=== PATIENT | male | born 1985 ===

== ENCOUNTER → 2024-01-11 08:45 | Outpatient (REF) | payer BC, SELFPAY | LOC: HWRAD 08:45 | PROVIDERS: ATTENDING PHYSICIAN Orthopaedic Surgery | DX: S69.91XA Unspecified injury of right wrist, hand and finger(s), initial encounter (principal) | CPT/HCPCS: 73130 ==

== ENCOUNTER → 2024-02-25 10:36 | Outpatient (REF) | payer BC, SELFPAY ==
[2024-02-25 11:37] LABS: % Basophils 0.8 % (0-2); % Immature Granulocytes 0.3 % (0-0.5); % Lymphocytes 32.6 % (20.5-51.1); % Neutrophils 57.3 % (42.2-75.2); Absolute Basophils 0.1 10^3/uL (0-0.2); Absolute Eosinophils 0.2 10^3/uL (0-0.7); Absolute Lymphocytes 2.6 10^3/uL (1.2-3.4); Absolute Monocytes 0.6 10^3/uL (0.1-0.6); Absolute Neutrophils 4.5 10^3/uL (1.4-6.5); Hematocrit 42.1 % (39.0-52.0); Hemoglobin 14.4 g/dL (13.0-18.0); Mean Corp Hgb Conc. 34.2 g/dL (33.0-37.0); Mean Corpuscular Hgb 29.6 pg (27.0-31.0); Mean Corpuscular Volume 86.4 fL (80.0-94.0); Mean Platelet Volume 9.5 fL (7.4-10.4); Nucleated Red Blood Cells % 0 % (-); Platelet Count 320 10^3/uL (130-400); Red Blood Cell Count 4.87 10^6/uL (4.70-6.10); Red Cell Dist. Width 13.4 % (11.5-14.5); White Blood Cell Count 7.8 10^3/uL (4.8-10.8)
[2024-02-25 11:46] LABS: ALT (SGPT) 33 U/L (0-50); AST (SGOT) 32 U/L (17-59); Albumin 4.9 g/dl (3.5-5.0); Alkaline Phosphatase 89 U/L (38-126); Blood Urea Nitrogen 12 mg/dl (9-20); Calcium 9.8 mg/dl (8.4-10.2); Carbon Dioxide 29 mmol/L (22-30); Chloride 102 mmol/L (98-107); Glucose 94 mg/dl (70-99); HDL Cholesterol 42 mg/dl; LDL Cholesterol, Calculated 120 mg/dl; Potassium 4.7 mmol/L (3.5-5.1); Sodium 139 mmol/L (135-145); Total Bilirubin 0.8 mg/dl (0.2-1.3); Total Cholesterol 206 mg/dl (50-199); Total Protein 8.3 g/dl (6.3-8.2); Triglyceride 224 mg/dl (10-149); Very Low Density Lipoprotein 44 mg/dl (0-30); eGFR > 60.00
[2024-02-25 12:17] LABS: TSH Reflex To Free T4 1.44 uIU/ml (0.47-4.68)
== END ==
LOC: REG 10:36
PROVIDERS: ATTENDING PHYSICIAN Physician Assistant
DX: Z00.00 Encounter for general adult medical examination without abnormal findings (principal); L72.9 Follicular cyst of the skin and subcutaneous tissue, unspecified; Z13.29 Encounter for screening for other suspected endocrine disorder; Z13.0 Encounter for screening for diseases of the blood and blood-forming organs and certain disorders involving the immune mechanism; Z13.1 Encounter for screening for diabetes mellitus
CPT/HCPCS: 36415; 80053; 80061; 84443; 85025

== ENCOUNTER 2025-04-07 19:19 | Emergency (ER) | payer BC, SELFPAY ==
[2025-04-07 19:24] VITALS: BP 135/88
--- NOTE | 2025-04-07 20:11 | ED.GENMED ---
History of Present Illness
General
Chief Complaint: Skin Problem
Source: patient
Exam Limitations: none
Time Seen by Provider: 04/07/25 19:49
History of Present Illness
History of Present Illness:
See MDM
Past History
Past History
ED Past Medical History: None
ED Past Surgical History: None
Social History
Tobacco: Non-smoker
Alcohol: None
Phy Exam
Physical Exam
Physical Exam:
See MDM
Course
Orders/Labs/Results
Orders:
Orders
04/07/25 20:09
Cephalexin Monohydrate [Keflex] 500 mg PO NOW STA
Sulfamethox./Trimethoprim Ds [Bactrim Ds 800 mg/160 mg] 1 tablet PO NOW STA
US Periph Venous LOWER Ext RT Urgent
Comment:
Reason For Exam: R leg swelling and pain
04/07/25 20:19
Complete Blood Count/With Diff Urgent
Comprehensive Metabolic Panel Urgent
Ehrlichia/Anaplasma by PCR [S] Urgent
Lyme Progressive Urgent
[facility] Spotted Fever IgG&IgM [S] Urgent
Blood Parasites Urgent
[facility]UR[facility] Source: Blood/Venous
Specimen Description:
Abnormal Lab Results
04/07/25
20:19
Glucose 101 H mg/dl
(70-99)
Total Protein 8.6 H g/dl
(6.3-8.2)
04/07/25 20:19
04/07/25 20:19
Vital Signs
Initial and Last Documented VS:
Initial Vital Signs
Temp Pulse Resp BP Pulse Ox
98.3 F 65 18 135/88 100
04/07/25 19:24 04/07/25 19:24 04/07/25 19:24 04/07/25 19:24 04/07/25 19:24
Last Documented Vital Signs
Temp Pulse Resp BP Pulse Ox
98.3 F 65 18 135/88 100
04/07/25 19:24 04/07/25 19:24 04/07/25 19:24 04/07/25 19:24 04/07/25 20:12
MDM/Problems Addressed
Differential Diagnosis Includes:
Note:
CHIEF COMPLAINT(S)
Severe spreading skin reaction following an insect bite.
HISTORY OF PRESENT ILLNESS
The patient is a 40-year-old male who presented with a severe and spreading skin reaction following an insect bite that occurred on Tuesday at approximately 10:00 PM. The patient described an initial burning sensation at the site of the bite for
about six hours, during which he applied cold water and ice packs to alleviate the burning. By the following day, the affected area had become swollen, and he noted significant tightness which restricted leg movement. On the day of the visit,
further spread of the reaction with accompanying pitting was observed. The patient denies any significant pain unless the area is stretched. The physical characteristics are consistent with cellulitis, raising concerns for infection. The timeline
and presentation are less typical for a tick bite, but Lyme disease testing will still be considered. Given the pitting edema to the right leg, will obtain ultrasound rule out DVT
ALLERGIES
The patient reports no known allergies.
MEDICATIONS
There are no current medications reported by the patient.
PHYSICAL EXAM
General: Alert, no acute distress.
Skin: Cellulitic changes to right medial thigh
Head: Normocephalic, atraumatic
Neck: Appears supple, trachea midline.
Eyes, Ears, Nose, Mouth, and Throat: Oral mucosa moist.
Cardiovascular: No signs of cyanosis
Respiratory: Respirations are non-labored.
Abdomen: Non-distended
Musculoskeletal: Pitting edema noted to right distal leg but leg is neurovascularly intact
Neurological: No focal neurological deficit observed.
Psychiatric: Cooperative, appropriate mood and affect.
PLAN
1. Blood Work: Perform blood tests to check for tick-borne illnesses, including Lyme disease.
2. Antibiotics: Initiate treatment with cephalexin and sulfamethoxazole/trimethoprim (Bactrim) to address the suspected bacterial infection and provide coverage for different types of pathogens.
3. Imaging: Consider a lower extremity ultrasound to rule out deep vein thrombosis, particularly due to unilateral swelling, although it is considered likely to be due to infection.
4. Follow-up: The patient will be contacted with results, especially if Lyme disease tests come back positive, and antibiotics may be adjusted as necessary.
DIFFERENTIAL DIAGNOSIS
The Differential Diagnosis includes, in no particular order and is not limited to:
1. Insect bite reaction
2. Cellulitis
3. Lyme disease
4. Deep vein thrombosis
5. Allergic reaction
6. Contact dermatitis
7. Erysipelas
8. Systemic infection
9. Localized abscess
10. Venous insufficiency
SUMMARY OF ENCOUNTER
The patient, a 40-year-old male, presented with a severe and spreading skin reaction following an insect bite. Initial evaluations suggested cellulitis. An ultrasound was performed to rule out deep vein thrombosis (DVT), which returned negative.
PLAN
Initiate treatment with cephalexin and sulfamethoxazole/trimethoprim to address the cellulitic infection. Antibiotics were chosen due to the aggressive nature of the infection. Tick-borne illness testing is pending, with follow-up instructions
provided.
PATIENT EDUCATION AND COUNSELING
The patient was advised on strict return precautions, including monitoring for spreading of the infection and development of fevers.
FOLLOW-UP INSTRUCTIONS
Follow-up with the primary care physician was recommended, particularly regarding tick-borne illness testing results.
MEDICATION RECONCILIATION
Cephalexin and sulfamethoxazole/trimethoprim were prescribed for the suspected bacterial infection.
MEDICAL DECISION MAKING
-Complexity of Data Reviewed: Differential diagnosis includes insect bite reaction, cellulitis, Lyme disease, DVT, allergic reaction, contact dermatitis, erysipelas, systemic infection, localized abscess, and venous insufficiency.
-Data:
Category 1
The patients negative ultrasound results for DVT were independently interpreted.
- Risk:
Consideration of Admission/Observation: Escalation of care, including admission/observation, was considered given the complexity and risk of the patients presenting complaint and exam findings. However, ultimately, I feel the patient is safe for
outpatient management with close follow-up. Work-up reassuringly does not reveal any acute life/organ-threatening processes, and the patients symptoms are well controlled upon reevaluation. The patient is agreeable to discharge and reliable for
follow-up. Prescription medication was prescribed (cephalexin and sulfamethoxazole/trimethoprim) for managing the cellulitic infection.
DIAGNOSIS
Cellulitis (ICD-10: L03.90)
Rule out Lyme disease; testing pending.
*Pulse Oximetry
SaO2: 100
Oxygen Mode of Delivery: Room air
Patient hypoxic: no
*Critical Care Note
Total Time (30-74mins, 75-104mins- exclusive of procedures): Not Applicable
ED Attending Note
-
Portions of this chart may have been created with voice recognition software.� Occasional wrong word or��sound alike� substitutions may have occurred due to the inherent limitations of voice recognition software.
Discharge Plan
Departure
Patient Disposition: Home (Routine Discharge)
Date of Disposition: 04/07/25
Time of Disposition: 22:09
Patient with high blood pressure during this ER visit?: No
Discharge Problem:
Cellulitis
Instructions: Cellulitis (Skin Infection), Adult (DC)
Prescriptions:
New
sulfamethoxazole-trimethoprim [Bactrim DS] 800-160 mg tablet
1 tab PO BID 7 Days Qty: 14 0RF
cephalexin 500 mg capsule
500 mg PO BID 7 Days Qty: 14 0RF
Activity Restrictions/Additional Instructions:
Watch for worsening signs of infection: fever over 100.5', increasing pain, red streaks around wound, swelling, or increasing drainage of pus. If any of these happen, return to ED promptly. Make sure that you take all your antibiotics as directed
and finish your prescription even if you feel better before the bottle is empty
Interventions
Interventions:
*Risk Screen - Suicide Last Done: 04/07/25 19:24
*General Assessment Last Done: 04/07/25 19:24
*Neglect/Abuse Screening Last Done: 04/07/25 19:24
*ED- Fall Risk Assessment Last Done: 04/07/25 20:22
ED-Skin Assessment Last Done: 04/07/25 20:22
Discharge Date and Time
Print Language: NEPALI
[2025-04-07] MEDS: BACTRIM DS 800 MG/160 MG 1 TABLET PO (20:13)
[2025-04-07] MEDS: KEFLEX 500 MG PO (20:13)
--- NOTE | 2025-04-07 20:23 | EDRN ---
Pt noted bite to R medial thigh on Tuesday morning. Area reddened and was painful yesterday. Pt denies fever/chills. Pt concerned because he had pitting edema almost up to his knee which has lessened and is only on lower leg at this time.
[2025-04-07 20:29] LABS: Hematocrit 43.9 % (39.0-52.0); Hemoglobin 14.9 g/dL (13.0-18.0); Mean Corp Hgb Conc. 33.9 g/dL (33.0-37.0); Mean Corpuscular Volume 83.5 fL (80.0-94.0); Nucleated Red Blood Cells % 0 % (-); Platelet Count 280 10^3/uL (130-400); Red Cell Dist. Width 14.4 % (11.5-14.5)
[2025-04-07 20:47] LABS: ALT (SGPT) 26 U/L (0-50); AST (SGOT) 28 U/L (17-59); Albumin 5.0 g/dl (3.5-5.0); Alkaline Phosphatase 97 U/L (38-126); Blood Urea Nitrogen 19 mg/dl (9-20); Calcium 9.4 mg/dl (8.4-10.2); Carbon Dioxide 28 mmol/L (22-30); Chloride 107 mmol/L (98-107); Glucose 101 mg/dl (70-99); Potassium 4.6 mmol/L (3.5-5.1); Sodium 141 mmol/L (135-145); Total Protein 8.6 g/dl (6.3-8.2); eGFR > 60.00
[2025-04-09 13:53] LABS: Lyme Antibody Screen, EIA Negative (Negative)
== END 2025-04-07 22:11 | disposition home or self-care (01) ==
LOC: EMR 19:19
PROVIDERS: EMERGENCY PHYSICIAN Student in an Organized Health Care Education/Training Program; FAMILY PHYSICIAN Physician Assistant
DX: L03.115 Cellulitis of right lower limb (principal); M79.604 Pain in right leg; R60.0 Localized edema; S70.361A Insect bite (nonvenomous), right thigh, initial encounter; W57.XXXA Bitten or stung by nonvenomous insect and other nonvenomous arthropods, initial encounter
CPT/HCPCS: 99284; 80053; 85025; 86618; 86757; 87015; 87207; 87468; 87484; 87798; 93971

== ENCOUNTER → 2025-07-31 10:59 | Outpatient (REF) | payer BC, SELFPAY ==
[2025-07-31 11:30] LABS: Hematocrit 41.9 % (39.0-52.0); Hemoglobin 14.1 g/dL (13.0-18.0); Mean Corp Hgb Conc. 33.7 g/dL (33.0-37.0); Mean Corpuscular Volume 88.0 fL (80.0-94.0); Nucleated Red Blood Cells % 0 % (-); Platelet Count 278 10^3/uL (130-400); Red Cell Dist. Width 12.6 % (11.5-14.5)
[2025-07-31 13:23] LABS: ALT (SGPT) 40 U/L (0-50); AST (SGOT) 61 U/L (17-59); Albumin 4.6 g/dl (3.5-5.0); Alkaline Phosphatase 71 U/L (38-126); Blood Urea Nitrogen 10 mg/dl (9-20); Calcium 9.4 mg/dl (8.4-10.2); Carbon Dioxide 27 mmol/L (22-30); Chloride 104 mmol/L (98-107); Glucose 89 mg/dl (70-99); HDL Cholesterol 40 mg/dl; LDL Cholesterol, Calculated 127 mg/dl; Potassium 4.5 mmol/L (3.5-5.1); Sodium 136 mmol/L (135-145); Total Protein 8.2 g/dl (6.3-8.2); Very Low Density Lipoprotein 40 mg/dl (0-30); eGFR > 60.00
== END ==
LOC: RAD 10:59
PROVIDERS: ATTENDING PHYSICIAN Physician Assistant
DX: M62.830 Muscle spasm of back (principal); G89.29 Other chronic pain; M54.6 Pain in thoracic spine; Z00.00 Encounter for general adult medical examination without abnormal findings; E78.1 Pure hyperglyceridemia; Z13.29 Encounter for screening for other suspected endocrine disorder; Z13.0 Encounter for screening for diseases of the blood and blood-forming organs and certain disorders involving the immune mechanism; Z13.1 Encounter for screening for diabetes mellitus
CPT/HCPCS: 36415; 72072; 80053; 80061; 84443; 85025